=== PATIENT | male | born 1995 | race Caucasian/White ===

== ENCOUNTER 2022-05-01 16:03 | Emergency (ER) | payer SELFPAY ==
[2022-05-01 19:43] LABS: ACETAMINOPHEN <2.0 ug/mL; BLOOD UREA NITROGEN,BUN 17 mg/dL (7.0-18.0); CARBON DIOXIDE,CO2 26.8 mmol/L (21.0-32.0); CHLORIDE,CL 103 mmol/L (98-107); GLUCOSE RANDOM 76 mg/dL (74-106); POTASSIUM,K 4.4 mmol/L (3.5-5.1); SODIUM,NA 141 mmol/L (136-148)
[2022-05-01 19:46] LABS: ESTIMATED GFR 86 mL/min (>60)
== END 2022-05-02 01:06 ==
LOC: MW.ED 16:03
DX: F32.A Depression, unspecified (principal); R45.851 Suicidal ideations; Z20.822 Contact with and (suspected) exposure to COVID-19
CPT/HCPCS: 36415; 80053; 80143; 80179; 80305-QW; 80307; 81001; 83735; 84439; 84443; 84481; 85025; 93005; 93010; 99285; U0002

== ENCOUNTER 2022-09-09 02:20 | Emergency (ER) | payer OTHER | END 2022-09-09 03:49 | LOC: MW.ED 02:20 | DX: S06.0X1A Concussion with loss of consciousness of 30 minutes or less, initial encounter (principal); Z72.0 Tobacco use; V89.2XXA Person injured in unspecified motor-vehicle accident, traffic, initial encounter; Y92.410 Unspecified street and highway as the place of occurrence of the external cause | CPT/HCPCS: 70450; 70450-26; 71045; 71045-26; 72125; 72125-26; 99284 ==

== ENCOUNTER 2022-09-09 05:18 | Emergency (ER) | payer SELFPAY ==
[2022-09-09] MEDS ORDERED: Acetaminophen 325 MG Tab PO ONE (06:37)
[2022-09-09] MEDS ORDERED: Ibuprofen 400 MG Tab PO ONE (06:37)
== END 2022-09-09 07:59 ==
LOC: MW.ED 05:18
DX: S62.314A Displaced fracture of base of fourth metacarpal bone, right hand, initial encounter for closed fracture (principal); S62.316A Displaced fracture of base of fifth metacarpal bone, right hand, initial encounter for closed fracture; W22.09XA Striking against other stationary object, initial encounter
CPT/HCPCS: 29125; 73130; 99283; A9270

== ENCOUNTER 2023-04-05 12:10 | Emergency (ER) | payer SELFPAY ==
[2023-04-05 14:00] LABS: APPEARANCE,URINE CLEAR; BILIRUBIN,URINE NEGATIVE (NEGATIVE); COLOR,URINE YELLOW; GLUCOSE,URINE NEGATIVE (NEGATIVE); KETONES,URINE TRACE mg/dL (NEGATIVE); LEUKOCYTE ESTERASE,URINE NEGATIVE (NEGATIVE); NITRITE,URINE NEGATIVE (NEGATIVE); OCCULT BLOOD,URINE NEGATIVE (NEGATIVE); PH,URINE 6.5 (5.0-8.0); PROTEIN,URINE NEGATIVE (NEGATIVE)
[2023-04-05 14:14] LABS: AMORPHOUS SEDIMENT,URINE FEW (NEGATIVE); BACTERIA,URINE FEW (NEGATIVE); EPITHELIAL CELLS,URINE RARE (NONE-FEW); RBC,URINE 0-2 (0-2/HPF); WBC,URINE 0-1 (0-5/HPF)
== END 2023-04-05 15:12 | disposition home or self-care (01) ==
LOC: MW.ED 12:10
DX: N50.812 Left testicular pain (principal); F17.210 Nicotine dependence, cigarettes, uncomplicated
CPT/HCPCS: 76870; 76870-26; 81001; 93976; 99284